=== PATIENT | male | born 1950 | race Caucasian/White ===

== ENCOUNTER 2017-09-25 18:23 | Inpatient (IN) | payer OTHER, MEDICARE, MEDICAID ==
[~2017-09-25] VITALS: Ht 188 cm; Wt 86.2 kg
[~2017-09-25 18:23] MED LIST: DURAGESIC1 EAC4 TD; HYDROCODON-ACE1 EAC8 PO; MECLIZINE HCL25 MG PO; METOPROLOL TART50 MG PO; OMEPRAZOLE20 M1 PO; PROVENTIL HFA6.7 GM INH
--- NOTE | 2017-09-25 22:10 | NUR ---
PT ARRIVES TO CCU FROM ER WITH AND SON, VERY PAINFUL, UP TO BR TO VOID 200ML THEN TO BED. ORIENTED TO ROOM AND CCU, PLAN OF CARE DISCUSSED WITH PT AND HIS FAMILY, QUESTIONS ANSWERED. PT GIVEN 50MCG IV FENTANYL AND OLD FENTANYL PATCH REMOVED AND NEW ONE PLACED. ASSESSMENT DONE. PT HAVING ABDOMINAL PAIN AND CRAMPING SINCE THIS MORNING, ADMITTED FOR ISCHEMIC COLITIS. WILL START IVF, ABX GIVEN IN THE ER.
--- NOTE | 2017-09-26 00:36 | NUR ---
HOLDEN PLACED WITH STERILE TECHNIQUE NO DIFFICULTY, PT PAM PROCEDURE WELL, IMMEDIATELY 185ML OUT OF CLEAR YELLOW URINE, SPECIMEN SENT TO LAB. PT IS MORE COMFORTABLE AT THIS TIME, RATES ABDOMINAL PAIN 6.5/10. WILL TRY TO SLEEP NOW, CALL LIGHT IN HAND.
--- NOTE | 2017-09-26 01:05 | NUR ---
PT CALLS FOR MORE PAIN MEDICINE, 50 MCG IV FENTANYL GIVEN.
--- NOTE | 2017-09-26 02:15 | NUR ---
PT CALLS FOR PAIN MEDICINE, 50MCG IV FENTANYL GIVEN.
--- NOTE | 2017-09-26 03:29 | NUR ---
PT CALLS FOR PAIN MEDICINE FOR 8/10 BACK AND "KIDNEY" PAIN. 50MCG IV FENTANYL GIVEN, WARM BLANKET GIVEN AND PT TO TRY TO GO BACK TO SLEEP.
--- NOTE | 2017-09-26 05:20 | NUR ---
PT CALLS FOR MEDICINE FOR HEADACHE 06/20. 30MG IV TORADOL GIVEN, PT STATES IT HELPED WITH HIS HEADACHE LAST DOSE. BACK TO TRY TO CONTINUE SLEEPING.
--- NOTE | 2017-09-26 06:56 | NUR ---
UP TO BSC, FEELING ABD CRAMPING AND THINKS HE MAY HAVE TO HAVE A BOWEL MOVEMENT.
--- NOTE | 2017-09-26 08:10 | NUR ---
PT AWAKE AND ALERT X4, C/O 7/10 ABD CRAMPING PAIN. PT ALSO C/O SLIGHT NAUSEA. PT DENIES SOB. VITALS AT THIS TIME WNL.
--- NOTE | 2017-09-26 08:15 | NUR ---
PT GIVEN 5O MCG IV FENTANAL FOR PAIN, GIVEN 4 MG IV ZOFRAN FOR NAUSEA. PT ABLE TO HAVE BOWEL MOVEMENT IN BEDSIDE COMMODE CONSISTING MOSTLY OF CURRENT JELLY/BLOODY STOOL. SAMPLE SENT TO LAB.
--- NOTE | 2017-09-26 08:26 | NUR ---
IV SITES INTACT, NO REDNESS OR SWELLING NOTED, FLUIDS INFUSING EASILY. PT DENIES PAIN WITH FLUSH.
--- NOTE | 2017-09-26 09:00 | NUR ---
PT LYING IN BED WHEN ENTERED. ALERT AND ORIENTED. STATED PAIN OF 8 IN ABDOMEN. GIVEN FENTANYL IV ORDERED PRN. PT SAT UP IN BED AND WASHED FACE AND BRUSHED TEETH INDEPENDENTLY. PT HAD ATTEMPTED BM, BEDSIDE COMMODE. ONLY PASSED BLOOD, UNMEASURED AMOUNT. SAMPLE SENT TO LAB. PT STATED NO FEELING OF INCREASED WEAKNESS OR DIZZINESS UPON STANDING FOR BATHROOM.
--- NOTE | 2017-09-26 09:06 | NUR ---
PT C/O 05/20 ABD CRAMPING/PAIN. 50 MCG IV FENTANAL GIVEN FOR PAIN, WARM BLANKETS APPLIED TO ABD. PT ALSO C/O NAGGING HEADACHE, IT IS NOT YET TIME TO GIVE TORADOL FOR THE HEADACHE, ICE PACK APPLIED TO THE BACK OF THE NECK. PT COOPERATIVE AND POLITE. ALERT AND ORIENTED X4.
--- NOTE | 2017-09-26 10:05 | NUR ---
D/C HOLDEN CATHETER. NO RESISTANCE AND PT TOLERATED WELL.
--- NOTE | 2017-09-26 10:19 | NUR ---
PT SITTING UP IN BED, ALERT AND ORIENTED AND VISITING WITH AND SON.
--- NOTE | 2017-09-26 10:30 | NUR ---
FULL REPORT GIVEN TO LANCE MARC. PT IS TO BE TRANSFERED TO MED SURG ROOM 124.
--- NOTE | 2017-09-26 10:35 | NUR ---
HANDOFF REPORT RECEIVED FROM TARI OBRIEN IN CCU. PT TO ARRIVE TO MS FLOOR VIA HOSPITAL BED.
--- NOTE | 2017-09-26 11:00 | NUR ---
PT UP TO BEDSIDE COMMODE.
--- NOTE | 2017-09-26 11:15 | NUR ---
PT BACK TO BED, TRANSFERING TO MED-SURG ON BED. ALL PERSONAL BELONGINGS WENT WITH PT. SPOUSE AND SON ALSO WENT WITH PATIENT.
--- NOTE | 2017-09-26 11:26 | NUR ---
PT GIVEN 50 MCG IV FENTANAL FOR ABD PAIN.
--- NOTE | 2017-09-26 11:30 | NUR ---
PT ARRIVES TO MED SURG VIA HOSPITAL BED. PT COMPLAINING OF 6/10 PAIN IN HEAD, ABDOMINAL CRAMPING. RN CAMILLE ADMINISTERED 50 MCG FENTANYL. PRN TORADOL ADMINISTERED FOR GERONIMO. PT AND SON PRESENT IN ROOM. PT'S VITALS STABLE 96% ON ROOM AIR, HR 60, BP 140/74, RR 18, TEMPERATURE 97.5. SCD'S APPLIED TO PT. IVF INFUSING, MG INFUSING. PT GIVEN WARM BLANKET, OFFERED WASH CLOTH FOR FOREHEAD. CALL LIGHT IN REACH.
--- NOTE | 2017-09-26 11:30 | NUR ---
AIDED PRIMARY NURSE IN TRANSFER FROM CCU TO MED/SURG. PT STATED PAIN FROM HEADACHE AND ABDOMEN AT 6. GAVE FENTANYL AND TORIDOL. APPLIED SCD'S. GAVE PATIENT CALL LIGHT AND WARM BLANKET FOR ABDOMEN. AND SON IN ROOM. PT INSTRUCTED TO CALL NURSE.
--- NOTE | 2017-09-26 11:45 | NUR ---
PT CAME FROM CCU. TOOK VITALS AND PUT NEW BAND ON HIM.
--- NOTE | 2017-09-26 11:45 | NUR ---
PT ASSESSMENT COMPLETE. PT ABDOMEN SOFT, TENDER IN LEFT QUADRANT. PT HAS ACTIVE BOWEL TONES X 4 QUADRANTS. PTS LUNGS SOUND CLEAR THROUGHOUT ALL LOBES. ASSESSMENT OTHERWISE WNL. PT ORIENTED, COOPERATIVE. CONTINUES TO COMPLAIN OF INTENSE "CRAMPING" IN LEFT ABDOMINAL QUADRANT. PT HAS CALL LIGHT, PLAN TO ADMINISTER ADDITIONAL PRN FENTANYL AVAILABLE.
--- NOTE | 2017-09-26 12:01 | NUR ---
ADMINISTERED PRN FENTANYL 50 MCG FOR 05/20 REPORTED ABDOMINAL PAIN IN LEFT ABDOMEN. PT CONTINUES TO COMPLAIN OF GERONIMO WELL. PT RESTING IN BED, IV MG INFUSING AT 100 ML/HR. PT IV SITES WNL. PT HAS CALL LIGHT IN REACH. WILL CONTINUE TO MONITOR.
--- NOTE | 2017-09-26 12:50 | NUR ---
DR. TELLO IN PT ROOM, EXPLAINED PT'S CURRENT ILLNESS, DEMONSTRATED WITH VERBAL AND VISUAL PICTURE. PT'S QUESTIONS ANSWERED. DIET ADVANCED TO CLEAR LIQUIDS FOR TODAY. PT SON AND IN ROOM FOR EXPLANATION. ADMINISTERED 50 MCG FENTANYL FOR LEFT ABDOMINAL PAIN. WILL CONTINUE TO MONITOR. CALL LIGHT IN REACH.
--- NOTE | 2017-09-26 13:20 | NUR ---
PT GIVEN MG. HEAD ELEVATED IN BED, ALERT AND ORIENTED AND VISITING WITH SON AND . PT STATED PAIN WAS RISING AGAIN, AT A 7 IN ABDOMEN. EXPLAINED THAT PT WOULD NOT BE UP FOR FENTANYL DOSE UNTIL 1330. PT DENIED CHANGE OF POSITION, HEAT OR ICE PACK.
--- NOTE | 2017-09-26 13:46 | NUR ---
ADMINISTERED 50 MCG PRN FENTANYL FOR 8/10 PAIN IN LEFT ABDOMEN. PT LYING IN BED. PT FAMILY IN ROOM. PT REQUESTING WATER, SN GRIFFITH BROUGHT PT WATER. CALL LIGHT IN REACH. WILL CONTINUE TO MONITOR.
--- NOTE | 2017-09-26 15:14 | NUR ---
PT RESTING IN BED. DOING WELL. PRINTED HIM OUT SOME INFO ON SCDS AT HOME
--- NOTE | 2017-09-26 15:30 | NUR ---
PT GIVEN CHICKEN BROTH AND ENCOURAGED TO SIP WATER, WELL. SPOKE TO PT ABOUT OPIOID USE AND PT'S PERSONAL GOAL TO DECREASE USE. PT IS CONCERNED ABOUT HYDROCODONE USE AT HOME AND BECOMING MORE DEPENDENT ON HOME MEDS FROM FENTANYL USE AT HOSPITAL. PRIMARY NURSE ABHIJIT OFFERED TO HAVE PHARMACY TALK TO HIM. PT DESCRIBED FEELINGS OF DEPRESSION AND DIFFICULTY LEAVING BED AT TIMES. RECOGNIZES THAT HE MAY NEED ADDITIONAL ASSISTANCE AND STATED THAT HE FEELS HIS OPIOID USE MAY NOT BE HELPING HIM WITH PROBLEMS WITH GI AND DEPRESSION. NOTIFIED SHOWROOM SALES ASSISTANT, CHARLA, OF PT-SN CONVERSATION ABOUT DEPRESSION.
--- NOTE | 2017-09-26 15:39 | NUR ---
PAINTER ORDNANCE SET UP WITH FENTANYL IV W RN ABHIJIT. PT EDUCATED ON PAINTER ORDNANCE USE, AVAILABILITY OF PAIN MEDICATION DELIVERY. PT VERBALIZED UNDERSTANDING. PT STATES THAT PAIN IS 5/10 AT THIS TIME. PT REQUESTED BROTH. SN IN ROOM CHANGING LINENS, PT UP TO RESTROOM AT THIS TIME. WILL CONTINUE TO MONITOR.
--- NOTE | 2017-09-26 15:58 | NUR ---
PT ALERT AND ORIENTED, VISITING WITH SON AND . C/O LEFT ABDOMINAL PAIN AND GIVEN FENTANYL IV ORDERED PRN.
--- NOTE | 2017-09-26 16:18 | NUR ---
PT AMBULATED WELL FROM BED TO BATHROOM. LINENS CHANGED AND PT SETTLED BACK IN BED WITH SCD'S ON. ASKED ABOUT PRESSURE ULCERS, STATED NO PROBLEMS OR ACHES. ENCOURAGED TO SIT IN CHAIR OR CHANGE POSITIONS TO AVOID DEVELOPMENT OF ULCERS, PT POLITELY DECLINED.
--- NOTE | 2017-09-26 17:00 | NUR ---
PT ASSESSMENT COMPLETE. PT'S LUNGS CLEAR THROUGHOUT. PT BOWEL TONES ACTIVE X 4, PT HAS PAIN WITH PALPATION IN LEFT LOWER QUADRANT, AREA OF FIRMNESS NOTED IN LLQ. PT ABDOMEN OTHERWISE SOFT, NON-TENDER. PT HAS SCDS ON, IVF INFUSING. PT STATES PAIN IS 5/10. CALL LIGHT IN REACH.
--- NOTE | 2017-09-26 17:01 | NUR ---
SPOKE WITH PT CONCERNING VOCALIZATION OF DEPRESSION. PT STATED HE KNOWS HE HAS DEPRESSION. HE DOES NOT FEEL HE HAS BEEN ABLE TO TREAT IT. PAST EXPERIENCES WITH ANTIDEPRESSANTS DID NOT GO WELL. PT IS UNSURE IF HE WOULD PURSUE THERAPY WITH A PROFESSIONAL. HE FEELS HE RECOGNIZES HIS TRIGGERS AND CAUSES (OPIOIDS, CHRONIC PAIN, AND HX) AND HE IS WORKING TO ADDRESS THOSE. ENCOURAGED PT TO VOCALIZE ANY CONCERNS WITH PRIMARY NURSE OR ACUPRESSURIST.
--- NOTE | 2017-09-26 17:15 | NUR ---
PT GIVEN NEW BAG OF LR D5. COMFORTABLE IN BED WITH CALL LIGHT AND INTERACTIVE DEVELOPER WITHIN REACH. DESCRIBES ABD PAIN 5/10. STATED HAS NOT USED INTERACTIVE DEVELOPER AT ALL, FEELS NORCO HAS COVERED PAIN WITHIN REASON.
--- NOTE | 2017-09-26 17:32 | NUR ---
PT BM @1500, DOCUMENTED NOW FOR TOTALS. WAS BLOODY, LOOSE. CONSISTED OF MORE BLOOD THAN STOOL. PT EXPRESSED FEELING IMPROVEMENT IN HEALTH AND NOTICING SUBJECTIVE DECLINE IN BLOODY STOOL AMOUNT AND FREQUENCY.
--- NOTE | 2017-09-26 17:57 | NUR ---
ATTACHED PT TO CONTINUOUS PULSE OXIMETRY. PT SPO2 94% ON ROOM AIR. PT HAS NOT USED CALENDERING SUPERVISOR PUMP AT THIS POINT. PT STATES PAIN IS 5/10, WHICH IS TOLERABLE FOR HIM. PT HAS CALL LIGHT IN REACH, IVF INFUSING.
--- NOTE | 2017-09-26 18:39 | NUR ---
SPOKE TO TELEPHARMACY REGARDING FENTANYL PATCH AND CONCRETE ENGINEERING TECHNICIAN FENTANYL. PHARMACIST STATES THAT LONG MAXIMUM DOSE SET, DUE TO PT'S REPORTED TOLERANCE OF NARCOTICS, PT SHOULD BE FINE AT THIS DOSE OF FENTANYL. PT IS ON CONTINUOUS PULSE OXIMETRY. WILL CONTINUE TO MONITOR.
--- NOTE | 2017-09-26 18:45 | NUR ---
PT ARRIVED TO MED SURG FROM UNIT THIS AFTERNOON. PT CONTINUES TO HAVE BLOOD IN STOOL, ONE BM THIS AFTERNOON. PT HAS DENIED NAUSEA THIS AFTERNOON. PAIN HAS BEEN CONTROLLED WITH PRN NORCO, FENTANYL PATCH AND TOOL PUSHER PUMP WITH FENTANYL. PT AMBULATES WITH SBA, GENERAL WEAKNESS. PT ON CLEAR LIQUID DIET AT THIS TIME WITH PLAN FOR SCOPE TOMORROW. SCD'S HAVE BEEN ON AND PT CONTINUES TO RECEIVE IVF.
--- NOTE | 2017-09-26 18:50 | NUR ---
PT AWAKE IN BED. FRESH ICE WATER. PT HAS CALL LIGHT IN REACH.
--- NOTE | 2017-09-26 20:00 | NUR ---
RECEIVED REPORT AT 1900. FOUND PT IN BED WITH AT BEDSIDE. PT STATED THAT HIS PAIN WAS AT A 5/10 WHICH IS TOLERABLE FOR HIM. INSPECTOR PACKAGER IS ON, FENTANYL PATCH IS PRESENT ON RIGHT SHOULDER. PT HAD NO N/V.
--- NOTE | 2017-09-26 22:00 | NUR ---
V/S ARE WDL. PT REPORTED PAIN OF 8/10, 2 TABS OF NORCO WERE GIVEN AND 30MG OF TORALDOL IV WAS GIVEN. PT HAS JENNI AND IS SUPPOSED TO USE A BI-PAP AT HOME (HE DOES NOT). PT IS CURRENTLY ON 2L OF O2 WHILE SLEEPING. FARM CONTRACTOR IS ON WELL TO MONITOR. LOWER BILATERAL LOBES HAD SOME FINE CRACKLES, BILATERAL UPPER LOBES AND RIGHT MIDDLE LOBE ARE CLEAR, NORMAL BOWEL TONES ARE PRESENT IN ALL QUADRANTS. ABD IS FIRMER IN RLQ AND ALSO MORE TENDER TO TOUCH.
--- NOTE | 2017-09-26 22:08 | NUR ---
ROUNDED CHARGE. PATIENT AND FAMILY HAVE NO COMMENTS, QUESTIONS, AND CONCERNS.
--- NOTE | 2017-09-27 | NUR ---
PT AT THIS TIME IS SLEEPING.
--- NOTE | 2017-09-27 04:19 | NUR ---
AT 0350 PT STARTED TO COMPLAIN ABOUT INCREASING ABD PAIN AND PRESSURE. ABD IS VISIBLY MORE DISTENDED AND FIRMER TO TOUCH. SBP WAS 159. BOWEL TONES ARE STILL ACTIVE. PT LOOKS AND FEELS BAD. MD TYLER WAS CALLED. NO NEW ORDERS WERE GIVEN AT THIS TIME. I WILL CONTINUE TO MONITOR.
--- NOTE | 2017-09-27 06:49 | NUR ---
AT START OF SHIFT ABD WAS MILDLY DISTENDED AND SOFT TO TOUCH. BY EARLY THIS MORNING HIS ABD WAS MODERATELY DISTENDED AND FIRM TO TOUCH. PT HAD A BLODDY BM X1. PT USE ALL TOGETHER 90MCG OF HIS E LEARNING COORDINATOR. PT RECEIVED PRN NORCO 2TAB AND TORADOL EACH X2 THIS SHIFT. PAIN IS NOT WELL CONTROLLED OVERALL. PT IS ON 2L OF O2. PT OVERALL DOES NOT FEEL WELL. MD TYLER IS AWARE. V/S AT THIS TIME ARE WDL
--- NOTE | 2017-09-27 07:15 | NUR ---
BEDSIDE REPORT RECEIVED FROM TARI BRADFORD. PT RATES PAIN OF 5/10 AT THIS TIME, STATES HE HAS A GERONIMO, DISCUSSED PRN TORADOL AVAILABILITY, GAVE PT COOL RAG FOR FOREHEAD. PT'S ABDOMEN IS MORE DISTENDED THROUGHOUT TODAY. ABDOMEN MORE FIRM TODAY. PT STATES HE "DOESN'T FEEL WELL OVERALL". WILL CONTINUE TO MONITOR PT. PT HAS CALL LIGHT IN REACH. IVF IS INFUSING, SCD'S ON. IV SITES WNL.
--- NOTE | 2017-09-27 07:58 | NUR ---
PT STATED FEELING MORE BLOATED IN ABDOMEN AND IS NOTICABLY SO COMPARED TO YESTERDAY. STATED DID NOT SLEEP WELL. NECK HAS BEEN HURTING, ASSOCIATED WITH CHRONIC PAIN. PT DENIED INTERVENTION AND ALREADY HAS COOL WASH CLOTHS ON FOREHEAD AND NECK. PT STATED NO PAIN IN ABDOMEN, BUT IS UNCOMFORTABLE AND SHORT OF BREATH.
--- NOTE | 2017-09-27 08:45 | NUR ---
PT ASSESSMENT COMPLETE. PT BOWEL TONES HYPOACTIVE X 4 QUADRANTS. PT STATES PAIN W DEEP PALPATION IN LLQ. CRACKLES NOTED IN RLQ, DIMINISHED THROUGHOUT. ENCOUARGED PT TO USE INCENTIVE SPIROMETER. PT DEMONSTRATED USE X 2 WITH 1750 ML BEST EFFORT. PT DENIES NAUSEA AT THIS TIME, RATES PAIN AT 5/10 IN ABDOMEN. IVF INFUSING, CHARGE NURSE IN AT THIS TIME TO NOTIFY THAT SURGERY IS ON WAY, DR. TELLO ON FLOOR FOR CONSENT. PT HAS CALL LIGHT.
--- NOTE | 2017-09-27 09:05 | NUR ---
DR. TYLER IN TO SEE PT. PT NOW OFF FLOOR WITH BILLING MACHINE OPERATOR, LR INFUSING. SCDS ON. PT ON ROOM AIR AT THIS TIME.
--- NOTE | 2017-09-27 10:30 | NUR ---
PT ARRIVES BACK TO MED SURG WITH SURGERY RN MAR. PT STATING PAIN IS 6/10 IN LLQ AT THIS TIME. PT HOOKED UP TO BARRELHEAD INSPECTOR PUMP, ARRIVES ON 2L NC. VITAL SIGNS STABLE AT THIS TIME. CRACKLES NOTED IN LLL ON AUSCULTATION. PT ENCOURAGED TO DEEP BREATHE, USE INCENTIVE SPIROMETER. PT BOWEL TONES ACTIVE X 4, ABDOMEN DISTENDED, TENDER THROUGHOUT WITH DEEP PALPATION. PT HOOKED UP TO SCDS AND IVF. CALL LIGHT IN REACH. PT IS DENYING NAUSEA AT THIS TIME.
--- NOTE | 2017-09-27 10:45 | NUR ---
PRIMARY NURSE ASSESSED PT AFTER RETURNING TO ROOM FROM COLONOSCOPY. ADMINISTERED ZOFRAN FOR NAUSEA AND REPOSITIONED PT FROM SUPINE TO LEFT SIDE FOR ABDOMINAL PAIN. PT STILL ON FENTANYL EMPLOYMENT OFFICE CLERK. SON, DAUGHTER, AND MOTHER AT BEDSIDE.
--- NOTE | 2017-09-27 11:16 | NUR ---
ADMINISTERED IV ZOFRAN FOR PT REPORT OF NAUSEA. PT COMPLAINING OF 8/10 PAIN AT THIS TIME, USING WASTE RECYCLER PUMP. IVF INFUSING AT THIS TIME. PT HAS SCD'S ON. REPOSITIONED PT TO SIDE FOR COMFORT. PT AT BEDSIDE. OXYGEN ON 2L NC, SPO2 96% AT THIS TIME, ENCOURAGED PT TO DEEP BREATHE, USE INCENTIVE SPIROMETER ABLE TO.
--- NOTE | 2017-09-27 11:30 | NUR ---
PTS SECOND SET OF POST OP VITALS COMPLETE. BP 152/81 (100), HR 66, TEMPERATURE 97.9, 97% ON 2L NC. PT STATES PAIN IS 3-4/10 AT THIS TIME. PT AWAKE, ORIENTED, AT BEDSIDE, SON AND DAUGHTER ALSO IN ROOM. PT HAS CALL LIGHT IN REACH, IVF INFUSING, SCDS ON. WILL CONTINUE TO MONITOR.
--- NOTE | 2017-09-27 12:27 | NUR ---
PT AMBULATED TO BATHROOM, SBA. RESITUATED IN BED WITH SCD'S, OXYGEN, AND NEW BAG OF D5LR. PT STATED FEELING LESS SEDATED BUT FALLING ASLEEP.
--- NOTE | 2017-09-27 12:35 | NUR ---
TITRATED PT DOWN TO 1.5 L O2 NC. ALERT SITTING IN BED WITH LUNCH AT SIDE AND AND DAUGHTER IN ROOM. PT STATES STILL FEELING DROWSY. THIRD SET OF VITALS POST-SURGERY. VITALS STABLE.
--- NOTE | 2017-09-27 12:50 | NUR ---
SLOWED PT IV POTASSIUM DOWN TO 75Ml/HR IN RESPONSE TO C/O ACHING IV SITE. NO SIGNS OF INFLAMMATION OR REDNESS. PT TURNED TO RIGHT SIDE TO SLEEP. GAVE REPORT TO TARI VAZQUEZ.
--- NOTE | 2017-09-27 13:13 | NUR ---
PT STATES PAIN AT RIGHT AC IV SITE. POTASSIUM SLOWED DOWN TO 50ML/HR AND GIVEN WARM BLANKET FOR SITE. PT C/O FEELING SOB WHEN FALLING ASLEEP. O2 SATS REMAIN ABOVE 95 WHILE SN IN ROOM WITH PT SLEEPING. NURSE LANCE NOTIFIED OF ALL.
--- NOTE | 2017-09-27 14:58 | NUR ---
ADMINISTERED PRN NORCO FOR PT REPORTED PAIN OF 6/10 "CRAMPING". PT SITTING UP IN BED. IV FLAGYL AND FLUIDS INFUSING. PT IV SITES WNL. PT DENIES NAUSEA. NO ADDITIONAL REQUESTS AT THIS TIME. PT STILL COMPLAINING OF GERONIMO WELL, IV TORADOL WAS ADMINISTERED. PT HAS CALL LIGHT IN REACH. SPO2 94% ON ROOM AIR. WILL CONTINUE TO MONITOR.
--- NOTE | 2017-09-27 16:39 | CONS ---
[facility] [address], [place] [address] Signed DATE OF CONSULTATION: 09/26/2017 PROBLEM: Probable ischemic colitis, left colon. HISTORY OF PRESENT ILLNESS: This 67-year-old white man was admitted by Dr. Troncoso yesterday, September 25 at approximately 10:30 p.m. with complaints of left-sided abdominal pain. The patient has a long-standing history of chronic pain syndrome related to several back operations of his lumbar spine. He is on a fentanyl patch chronically for that. Yesterday, the day of admission, he began having pain in the lower abdomen, which was rather sudden in onset and noted on the left side including the left lower abdomen. He had a fair amount of cramping and need for bowel movement and did have some bloody diarrhea. He had at least three episodes of blood per rectum. He presented to the emergency room, where he was evaluated by Dr. Rosas, which included a CT scan showing probable left-sided colitis, consideration was made this may represent ischemic colitis. Upon close review and discussion with his and son who attend to him, he has had episodes of abdominal pain including left-sided pain in the past. This has actually been going on for quite some time, may be months or even more than a year. He has no family history of ulcerative colitis or Crohn disease or colon cancer that he is aware of. SOCIAL HISTORY: He is retired. He previously lived in [place], [place]. He does not smoke or use alcohol particularly. He is . PAST MEDICAL HISTORY: Does include chronic back pain related to multiple operations in the past, currently requiring fentanyl patch for control of pain. Also, he has reflux disease and hypertension. Notably, he is said to have delirium from Dilaudid and morphine. He has been treated with fentanyl intravenously administered episodically since his admission. He is not on a INSPECTOR AIR CARRIER (yet). MEDICATIONS: At admission include, 1. Fentanyl patch 25 mcg/hour. 2. Albuterol sulfate. 3. Proventil. 4. Omeprazole. 5. Metoprolol 50 mg daily. 6. [place] 10/325 one p.o. b.i.d. 7. Meclizine 25 mg at bedtime p.r.n. nausea. Electronically Signed By: LYNDON TELLO MD 09/27/17 1639 PATIENT NAME: ARLEN GILL III CONSULTATION DATE OF : 46 PHYSICIAN: LYNDON TELLO MD REPORT #: [id number] REPORT IS CONFIDENTIAL AND NOT TO BE RELEASED WITHOUT AUTHORIZATION [facility] [address], [place] [address] Signed REVIEW OF SYSTEMS: He denies any chest pain or shortness of breath. He has had no further blood per rectum since admission. He does feel somewhat better since admission. He has no dysphagia or hematuria or hematemesis. Denies pneumaturia. PHYSICAL EXAMINATION: GENERAL: Pleasant, bermudez-haired, white man, who is alert and oriented with no sign of systemic toxicity or delirium. NECK: Trachea is midline. He has no carotid bruit. His mucous membranes are still somewhat dry. CHEST: Clear. HEART: Regular. I detect no murmur. ABDOMEN: Nondistended. Abdominal palpation shows dominant discomfort in the left lower and left mid abdomen. No right-sided pain. There is no ascites. EXTREMITIES: No clubbing, cyanosis, or edema. LABORATORY STUDIES: On admission from 6:45 p.m. show normal electrolytes, bicarb is 23, creatinine is 1.11. Liver enzymes are normal. ProTime is 12.4, INR 0.9. White count is elevated at 18.3, hematocrit 46.3, platelets 172,000, band forms 5%. I see no evidence of urinalysis. CT scan shows a long segment of colonic wall thickening and pericolonic stranding and edema of the left colon. Findings were considered "consistent with colitis." Consideration for small vessel ischemic vasculitis, infectious or inflammatory disease also noted. He is said to have a large arc of [place] originating from the SMA. I will need to review the CT more closely with the radiologist to affirm that description. ASSESSMENT: He has left-sided pain and CT scan findings consistent with colitis. Consideration has been made this is ischemic colitis and that certainly is possible. Infectious causes or late onset inflammatory bowel disease is a consideration as well. I will review the films more fully with Dr. Damico as regards possible anatomic variants of diminutive collateral flow related to the left colon. Consideration is made for colonoscopy to more clearly characterize the source of colitis. If inflammatory bowel disease is noted, then of course an anti-inflammatory approach will be necessary. If it is suspected as an ischemic colitis problem, then bowel rest, antibiotics and intravenous fluid resuscitation support would be the mainstay of therapy. I discussed all this in detail with the patient and his and his son with the use of illustrations on the dry [employer] board and so on. I would not recommend consideration for colonoscopy at this time given his still acute symptoms. He may be ready by tomorrow for this intervention, however. We will see clinically how he is doing in that regard. Electronically Signed By: LYNDON TELLO MD 09/27/17 4163 PATIENT NAME: ENGLISH CAPUTO,ARLEN ONARGA CONSULTATION DATE OF : 46 PHYSICIAN: LYNDON TELLO MD REPORT #: [id number] REPORT IS CONFIDENTIAL AND NOT TO BE RELEASED WITHOUT AUTHORIZATION [address] [place] [address] Signed Agree with current approach to therapy to include parenteral pain medication. He may benefit from a fentanyl INSPECTOR AIR CARRIER device as frequent dosing of his fentanyl has been required already. MD RAQUEL Juan/DIPTI /[id number] cc: [facility] Lance Troncoso MD Electronically Signed By: LYNDON TELLO MD 09/27/17 1639 PATIENT NAME: ARLEN GILL III CONSULTATION DATE OF : 46 PHYSICIAN: LYNDON TELLO MD REPORT #: [id number] REPORT IS CONFIDENTIAL AND NOT TO BE RELEASED WITHOUT AUTHORIZATION
--- NOTE | 2017-09-27 16:57 | NUR ---
DR. TELLO IN TO SEE PT, UPDATE ON PLAN OF CARE. PT AND PT'S 'S QUESTIONS ANSWERED. PT STATES PAIN IS 6/10 IN LLQ. PT PUSHED MOTION PICTURE ACTOR PUMP. PT AT BEDSIDE. CALL LIGHT IN REACH. NO REQUESTS AT THIS TIME. PLAN TO WALK THIS EVENING.
--- NOTE | 2017-09-27 21:46 | NUR ---
ROUNDED CHARGE. PATIENTS IS IN THE ROOM. PATIENT AND DENY ANY COMMENTS, QUESTIONS, OR CONCERNS.
--- NOTE | 2017-09-27 22:00 | NUR ---
V/S ARE WDL. PT SO FAR HAS RECEIVED 2TABS PRN NORCO AND 30MG OF IV TORADOL FOR PAIN 05/20. ALL LOBES ARE CLEAR, ABD BOWEL TONES ARE PRESENT, PT DENIED PASSING GAS, ABD IS FIRM AND TENDER TO TOUCH. PT AMBUALTED AROUND SHIFT CHANGE. PT IS TOLERATING PO INTAKE WELL. HOWEVER PT HAS POOR APPETITE. NO NEW CONCERNS AT THIS TIME.
--- NOTE | 2017-09-27 23:06 | NUR ---
PT RECEIVED 4MG OF ZOFRAN FOR NAUSEA.
--- NOTE | 2017-09-28 00:02 | NUR ---
PT IS STILL NAUASEADED BUT NO BAD. WILL CONTINUE TO MONITOR.
--- NOTE | 2017-09-28 02:00 | NUR ---
ASSISTED PT FROM BATHROOM. PT IS HAVING INCREASING ABD PAIN, BOWEL TONES ARE STILL PRESENT. PT DENIES PASSING GAS. ABD IS FIRM AND TENDER. PT IS USING FUELER AND DID NOT WANT ANY PO PRN PAIN MEDICATION. WILL CONTINUE TO MONITOR. NAUSEA HAS ALSO NOT FULLY SUBSIDED SO FAR.
--- NOTE | 2017-09-28 03:09 | NUR ---
AT AROUND 0245 PT HAD 10/10 PAIN IN ABD RLQ. PT REFUSED PO NORCO DUE TO NAUSEA AND ALSO REFUSED IV TORADOL (NOT SURE WHY). SBP WAS 195, ABD IS MODERATELY DISTENDED AND FIRM TO TOUCH. PT HOWEVER HAS NORMAL BOWEL TONES PRESENT. PT USED INCIDENT HANDLER X2 WITHIN ABOUT 45MIN WHICH EQUALED 40MCG OF IV FENTANYL. MD TYLER ORDERED 12.5MG OF PHENERGAN IV PRN Q6HRS. PHENERGAN AND IV TORADOL WERE GIVEN. WILL MONITOR [place]. V/S TO BE TAKEN AGAIN.
--- NOTE | 2017-09-28 03:37 | NUR ---
PAIN HAS NOT LESSEND SO FAR. PT DENIES NAUSEA. BP WAS 168/88, MAP 108, HR 70. PT IS BELCHING AT THIS TIME. PT AT THIS TIME IS DROWSY. WILL CONTINUE TO MONITOR.
--- NOTE | 2017-09-28 05:28 | NUR ---
AT START OF SHIFT PAIN WAS ACCEPTABLY CONTROLLED WITH PRN PAIN MEDS AVAIALBLE. ALL LOBES WERE CLEAR, ABD SOUNDS WERE PRESENT, V/S WERE WDL. BY AROUND 0230, PT HAD 10/10 PAIN, PT WAS NAUSEATED AND REFUSED PO PAIN MEDS. SBP WAS 195 AND MD TYLER WAS CALLED. I RECEIVED AN ORDER FOR PHENERGAN 12.5MG. IT WAS GIVEN. NAUSEA HAS SINCE SUBSIDED AND BP WAS GONE DOWN <180, HOWEVER HIS PAIN LEVEL HAS NOT CHANGED. PT HAS BEEN SLEEPING ON AND OFF DUE TO DROWSINESS. HIS ABD IS STILL DISTENDED AND FIRM TO TOUCH.PT IS STILL NOT PASSING ANY GAS. WILL CONTINUE TO MONITOR.
--- NOTE | 2017-09-28 06:04 | NUR ---
SBP WAS 182, MD TYLER WAS CALLED. NO NEW ORDERS WERE GIVEN.
--- NOTE | 2017-09-28 07:30 | NUR ---
PT BEING TAKEN TO X-RAY BY WHEELCHAIR NOW.
--- NOTE | 2017-09-28 07:37 | NUR ---
PATIENT BEING WHEELED TO IMAGING. WHITEBOARD UPDATED, ROOM TIDIED.
--- NOTE | 2017-09-28 08:32 | NUR ---
PT LYING ON LEFT SIDE RESTING QUIETLY. VSS. BP 137/71. 95% ON ROOM AIR. WATER SERVICE SUPERVISOR BUTTON ATTACHED TO PILLOW IN REACH OF PATIENT. DIRECTED PT TO USE BUTTON IF NEEDED FOR PAIN CONTROL. PT REPORTS 6/10 PAIN IN ABDOMEN. ABDOMEN DISTENDED AND TENDER. BOWEL TONES ACTIVE. NO FLATUS REPORTED YET. NEW FENTANYL PATCH APPLIED TO RIGHT SHOULDER.
--- NOTE | 2017-09-28 11:23 | NUR ---
NURSE IN ROOM, SWITCHING OUT IV.
--- NOTE | 2017-09-28 12:22 | NUR ---
PATIENT DOING WELL. DOES NOT NEED ANYTHING AT THIS TIME.
--- NOTE | 2017-09-28 13:54 | NUR ---
pt sleeping on left side. KPhos infusing into LAC. new iv placed by RN this morning to use for PROFESSIONAL ARCHITECT/IVF. norco 2 tabs given for abd pain. encouraged PO intake before taking tabs. was at bedside to assist with feeding. pt very somnolent and lethargic. increased pain with ambulation. will continue to have pt ambulate several times today.
--- NOTE | 2017-09-28 14:27 | NUR ---
PT URINATED 200ML DARK YELLOW URINE AND THEN AMBULATED 1 LAP OF MED SURG UNIT. APPEARS TO BE MORE COMFORTABLE AND PAIN BETTER CONTROLLED. PT STATES HE FEELS BETTER, BUT IS SLEEPY. PT BACK TO BED NOW. CALL LIGHT IN REACH.
--- NOTE | 2017-09-28 16:36 | NUR ---
PATIENT DOING WELL. GOT UP TO BATHROOM AND BACK TO BED. DOES NOT NEED ANYTHING ELSE AT THIS TIME.
--- NOTE | 2017-09-28 17:10 | NUR ---
PT SLEPT MOST OF DAY. ROOM AIR THROUGHOUT DAY. HELD LABETOLOL FOR SBP <130. AMBULATED HALLS X2 TODAY. COLONOSCOPY YESTERDAY. FENTANYL PATCH RIGHT SHOULDER AND FENTANYL BOILER OR ENGINE OPERATOR. D5LR@125. FLAGYL. KPHOS RIDER TODAY FOR PHOS 1.9. IMAGING THIS MORNING SHOWS NEGATIVE PERFORATION, COLITIS ALONG DESCENDING COLON, POSSIBLE MILD ILEUS OVER OBSTRUCTION. NEW IV IN LFA. NORCO 2 TABS GIVEN AT 1145-- IMPROVED PAIN TO COMFORTABLE LEVEL. ZOFRAN GIVEN AT 1550. POOR APPETITE. ENCOURAGE PO INTAKE. NO FLATUS. POSITIVE BOWEL TONES. IN TO VISIT THIS MORNING.
--- NOTE | 2017-09-28 18:49 | NUR ---
PT UP TO BATHROOM AND THEN AMBULATED A SHORT LAP AROUND EAST END OF MED SURG UNIT. BACK TO BED. SCDs IN PLACE AND ON. IV PUMPS PLUGGED IN. PAINT LINE PRODUCTION SUPERVISOR BUTTON WITHIN REACH. AT BEDSIDE.
--- NOTE | 2017-09-28 19:30 | NUR ---
RECEIVED REPORT FROM DAY SHIFT RN. PATIENT IS RESTING IN BED EATING JELLO. PATIENT DENIES ANY PAIN OR NEEDS AT THIS TIME. AT BEDISDE. CALL LIGHT IN REACH.
--- NOTE | 2017-09-28 21:00 | NUR ---
PATIENTS BP WAS ELEVATED ABOVE NORMAL. PLACED CALL TO HOSPITALIST. NO NEW ORDERS GIVEN. WILL GO AHEAD AND ADMINISTER 2100 BP MEDS.
--- NOTE | 2017-09-28 21:15 | NUR ---
PATIENTS ASSESMENT COMPLETED. PATIENTS EVENING MEDICATIONS GIVEN PER ORDER. PATIENT RATES PAIN AT AN 8/10. PRN PAIN MEDICATION GIVEN PER ORDER. PATIENTS ABDOMEN CONTINUES TO BE DISTENDED, BUT IS IT NON TENDER AND SOFT. PATIENT ASSISTED TO THE RESTROOM. PATIENT IS A SBA AND IS STEADY ON HIS FEET. PATIENT HAD X1 SMALL LOOSE BM. PATIENT DID PASS GAS WHILE IN THE BATHROOM. PATIENT HAS SCDS AND PULSE OX IN PLACE. PATIENTS REMAINS AT THE BEDISDE. ALL QUESTIONS ANSWERED. CALL LIGHT IN REACH. NO FURTHER REQUESTS.
--- NOTE | 2017-09-28 21:57 | NUR ---
PATIENTS VITALS REEVALUATED AND RECORDED. PATIENTS HAS LEFT FOR THE EVENING. PATIENTS PAIN IS NOW A 5/10. PATIENT STATED "THE PAIN PILL HELPED, I FEEL LIKE I CAN REST NOW" PATIENT DENIES ANY FURTHER NEEDS. CALL LIGHT IN REACH.
--- NOTE | 2017-09-28 23:40 | NUR ---
PATIENT CALLED AND REQUESTED PAIN MEDICATION FOR 7/10 ABD PAIN. PATIENT EDUCATED ON THE USE OF THE NOTCHING MACHINE OPERATOR. PATEINT STATED "THE PILLS WORK BETTER" PATIENT DOES NOT HAVE PO PAIN MEDICATION DUE AT THIS TIME. WILL BRING IN WHEN AVAILABLE.
--- NOTE | 2017-09-29 00:38 | NUR ---
PATIENT GIVEN PRN PAIN MEDICATION FOR 8/10 ABD PAIN. PATIENTS ABD REMAINS DISTENDED. ABDOMEN REMAINS NON TENDER AND SOFT. PATIENT DENIES ANY NAUSEA. PATIENT DENIES ANY FURTHER NEEDS. CALL LIGHT IN REACH.
--- NOTE | 2017-09-29 01:44 | NUR ---
PATIENT GIVEN PRN NAUSEA MEDICATTION. PATIENT ASSISTED TO THE RESTROOM. PATIENT IS A SBA AND IS STEADY ON HIS FEET. PATIENT RATES PAIN AT A 6/10. PATIENT IS BACK IN BED WITH SCDS AND PULSE OX IN PLACE. PATIENT DENIES ANY FURTHER NEEDS AT THIS TIME. CALL LIGHT IN REACH.
--- NOTE | 2017-09-29 03:51 | NUR ---
PATIENT IS RESTING IN BED WITH EYES CLOSED. PULSE OX READINGS ARE WNL. CALL LIGHT IN REACH.
--- NOTE | 2017-09-29 04:24 | NUR ---
PATIENT RESTED ON AND OFF THROUGHOUT THE SHIFT. PATIENT IS ON CLEARS. PATIENT GIVEN PRN NAUSEA MEDICATION X1. PATIENT GIVEN PRN PAIN MEDICATION X2. PATIENT HAS BUSINESS REPORTER IN PLACE. PATIENT HAS PULSE OX. PATIENT IS A SBA AND IS STEADY ON HIS FEET. PATIENT HAS SCDS IN PLACE. PATIENT HAS ACTIVE BOWELS TONES. PATIENTS ABD REMAINS DISTENDED, NON TENDER, AND SOFT. PATIENT IS AAOX3 AND USES CALL LIGHT APPROPRIATELY.
--- NOTE | 2017-09-29 05:47 | NUR ---
PATIENT IS ASSISTED TO AMBULATE IN THE HALLWAY. PATIENT IS A SBA AND IS STEADY ON HIS FEET. PATIENT WAS ABLE TO COMPLETE X1 LAP. PATIENT ASSISTED TO THE RESTROOM. PATIENT HAD X1 SMALL, LOOSE BM. PATIENTS BP WAS ELEVATED. PLACED CALL TO DR. TYLER. NO NEW ORDERS AT THIS TIME. PATIENT RATES PAIN AT A 5/10 AND DENIES THE NEED FOR PO PAIN MEDICATION. PATIENTS BOWELS REMAIN ACTIVE. PATIENT STATED "I FEEL LESS BLOATED, JUST GASSY" PATIENT CONTINUES TO PASS GAS, AND BELCH. PATIENTS ABDOMEN REMAINS SOFT, NON TENDER, AND DISTENDED. PATIENT DENIES ANY NAUSEA. PATIENT IS RESTING IN BED WATCHING TV. NO FURTHER REQUESTS AT THIS TIME. PIETRO LIGHT IN REACH.
--- NOTE | 2017-09-29 07:43 | NUR ---
PATIENT IN BED ASLEEP. WHITEBOARD UPDATED, ROOM TIDIED. PATIENT CALLED TO GO TO BATHROOM, TAKEN AND BACK TO BED.
--- NOTE | 2017-09-29 09:21 | NUR ---
PT SLEEPING ON LEFT SIDE IN BED. BOWEL TONES ACTIVE. NO FLATUS. PAIN COMFORTABLE LEVEL NOW. ENCOURAGED PT TO ASK FOR PRN PAIN MEDICATION WHEN NEEDED. NEW BACK IVF HUNG THIS MORNING. TOOK SCHEDULED MEDS ORDERED.
--- NOTE | 2017-09-29 10:14 | NUR ---
PATIENT HAD A NAUSEA EPISODE, NURSE NOTIFIED AND ADMINISTERED MEDICINE. PATIENT JUST DRY HEAVED, DID NOT HAVE ANY EMESIS OUT.
--- NOTE | 2017-09-29 12:58 | NUR ---
nurse in room
--- NOTE | 2017-09-29 13:17 | NUR ---
PT RESTING QUIETLY THROUGHOUT DAY. C/O HEADACHE. NORCO 2 TABS GIVEN.
--- NOTE | 2017-09-29 14:18 | NUR ---
ADMINISTERED NORVASC PER MD ORDER FOR BP. IVF DECREASED TO 75ML/HR. AMBULATED PT IN HALLS.
--- NOTE | 2017-09-29 15:46 | NUR ---
PATIENT DOING WELL. DOES NOT NEED ANYTHING AT THIS TIME.
--- NOTE | 2017-09-29 17:12 | NUR ---
PT SLEEPY FIRST HALF OF DAY. C/O NAUSEA AND HEADACHE. ZOFRAN X1, PHENERGAN X1, NORCO 2 TABS GIVEN X1. PT BETTER THIS AFTERNOON-- MORE ALERT AND ACTIVE. AMBULATED X2 1 FULL LAP OF MED SURG UNIT. D5LR INFUSION DECREASED TO 75ML/HR. FENTANYL MORTGAGE PROFESSIONAL DISCONTINUED. FENTANYL PATCH STILL ON RIGHT SCAPULA. CLEAR LIQUID DIET. ENCOURAGE PO INTAKE. ENSURES OK. CONTINUOUS PULSE OX DISCONTINUED WITH MORTGAGE PROFESSIONAL. NORVASC STARTED IN PLACE OF LABELOLOL. IN TO VISIT SEVERAL TIMES TODAY.
--- NOTE | 2017-09-29 19:20 | NUR ---
RECIEVED REPORT FROM SAHIL MARC. PT RESTING IN BED. AT BEDSIDE. DENIES NEEDS. CALL MINOR IN REACH.
--- NOTE | 2017-09-29 20:38 | NUR ---
PT RESTING IN BED WITH AT BEDSIDE. REQUESTING FOR NAUSEA MEDICATION. PT STATES HE DRANK AN ENSURE AND A CUP OF GRAPE JUICE THAT IS NOT SETTLING WELL. ZOFRAN ADMINISTERED. ENCOURAGED PT TO CALL IF NAUSEA IS NOT RELIEVED IN 20 MINUTES. PT DENIES FURTHER NEEDS. CALL MINOR IN REACH.
--- NOTE | 2017-09-29 21:23 | NUR ---
PT SLEEPING. AT BEDSIDE. DENIES NEEDS. CALL MINOR IN REACH.
--- NOTE | 2017-09-29 22:07 | NUR ---
PT RESTING IN BED. STATES HE HURTS "ALL OVER," BUT MOSTLY HIS LOWER ABD. STATES HE HAS CRAMPS AND RATES HIS PAIN 7/10. ADMINISTERED 2 TAB NORCO. NO C/O N/V. PT STATES HE FEELS MILDLY DISTENDED, ABD IS SOFT. LUNGS CLEAR/DIM, HR REG, NO EDEMA. ENCOURAGED USE OF INCENTIVE SPIROMETER, PT ABLE TO REACH 1750ML. PT REFUSING TO WEAR SCDS AT THIS TIME. STATES IT IS THE FIRST TIME HE HAS HAD THEM OFF. PT DENIES FURTHER NEEDS. CALL MINOR IN REACH.
--- NOTE | 2017-09-29 22:34 | NUR ---
PT UP TO BATHROOM WITH COAL CAGER.
--- NOTE | 2017-09-29 23:50 | NUR ---
PT C/O CRAMPING PAIN IN HIS LOWER ABD. PT STATES HE IS ALSO FEELING NAUSEOUS. ADMINISTERED PHENERGAN. ASSISTED PT TO BATHROOM.
--- NOTE | 2017-09-30 00:10 | NUR ---
MASONRY INSTRUCTOR REPORTS PT STATED HE HAD A GERONIMO WHEN SHE ASSISTED HIM BACK INTO BED FROM THE BATHROOM. WENT IN TO SEE PT, HE STATES HE DOES NOT HAVE A GERONIMO BUT HIS CRAMPING IS STILL SEVERE. I TOLD HIM I JUST GAVE HIM PHENERGAN AND IT STILL NEEDS TIME TO WORK. I TOLD HIM I WOULD BE BACK IN 15 MINUTES TO REASSESS. PT AGREES. CALL MILY IN REACH.
--- NOTE | 2017-09-30 00:30 | NUR ---
PT SLEEPING. IVF INFUSING W/O DIFFICULTY. CALL MINOR IN REACH.
--- NOTE | 2017-09-30 01:11 | NUR ---
PT SLEEPING. IVF INFUSING W/O DIFFICULTY. CALL MINOR IN REACH.
--- NOTE | 2017-09-30 02:41 | NUR ---
PT UP TO BATHROOM WITH SBA. VOIDED. BACK TO BED. PT C/O CRAMPS. APPLIED HEAT PACK. TOLD HIM I WOULD CHECK ON HIM IN 1/2 HOUR, IF CRAMPING IS NOT RELIEVED WILL GIVE PAIN MEDICATION. CALL LIGHT IN REACH.
--- NOTE | 2017-09-30 03:24 | NUR ---
PT SLEEPING. CALL MINOR IN REACH.
--- NOTE | 2017-09-30 04:29 | NUR ---
PT SLEEPING. CALL MINOR IN REACH.
--- NOTE | 2017-09-30 06:08 | NUR ---
PT UP TO BATHROOM TO VOID. BACK TO BED. SCDS IN PLACE. PT C/O GERONIMO THAT IS 05/20 AND ABDOMINAL CRAMPING IN LOWER ABDOMEN 05/20. I HAD HIM EAT A COUPLE BITES OF PUDDING BEFORE I ADMINISTERED 2 TAB NORCO. PT'S BS HYPOACTIVE, LUNGS CLEAR-DIM IN LEFT BASE. PT DEMONSTRATED PROPER USE OF IS- HE WAS ABLE TO REACH 2000ML. REMOVED SALINE LOCK IN R AC. PT DENIES FURTHER NEEDS. CALL MINOR IN REACH.
--- NOTE | 2017-09-30 09:54 | NUR ---
PATIENT UP TO SHOWER AND ORAL CARE. LINENS CHANGED.
--- NOTE | 2017-09-30 10:28 | NUR ---
PT UP TO BATHROOM THIS MORNING. VOIDING WELL. DIET ADVANCED TO FULL LIQUID LOW FIBER DIET. AMBULATED 1 LAP MED SURG UNIT THIS MORNING. DR TELLO IN TO SEE PATIENT. EXCEDRIN ADDED PER DR TELLO WITH OK FROM HOSPITALIST FOR HEADACHE. PT SET UP FOR SHOWER BY RN AND AID.
--- NOTE | 2017-09-30 12:38 | NUR ---
NEW IV PLACED. LAC LEAKING. AND SON VISITING NOW. GOWN CHANGED.
--- NOTE | 2017-09-30 13:10 | NUR ---
DR. TYLER IN TO SEE PATIENT. PATIENT MAY BE ELIGIBLE TO DISCHARGE HOME TOMORROW ON 10/01/17. PATIENT HAD SOLID FOOD FOR LUNCH TODAY, IS TOLERATING WELL WITH NO PAIN/NAUSEA. CARE CONFERENCE DONE WELL.
--- NOTE | 2017-09-30 13:18 | NUR ---
CARE CONFERENCE PRESENT: PATIENT, STAFF: DR TYLER, MYSELF, SUMMER SANDRA Galvez SMOKING PIPE MAKER, MEDICAL STUDENTS DISCUSSED THAT PATIENT IS READY FOR DISCHARGE POSSIBLY TOMORROW. QUESTIONS ANSWERED REGARDING MEDS/DIET/FOLLOW UP PATIENT AND STATE THEY FEEL HE CAN RETURN HOME SAFELY.
--- NOTE | 2017-09-30 14:04 | NUR ---
PATIENT RESTING IN BED WITH IN ROOM. CALL BUTTON IN REACH. FRESH ICE WATER GIVEN. NO OTHER NEEDS AT THIS TIME.
--- NOTE | 2017-09-30 14:08 | NUR ---
PT ALERT, ORIENTED AND SUPPORTED BY HIS . HE SAID HE WAS FEELING MUCH BETTER, AND THANKED ME FOR STOPPING BY. EXTENDED A BLESSING AND WILL FOLLOW NEEDED
--- NOTE | 2017-09-30 16:06 | NUR ---
MET WITH PATIENT AND A FAMILY MEMBER AT 2:30 PM TO REVIEW LOW-FIBER DIET. PROVIDED PRINTOUT FROM THE NUTRITION CARE MANUAL AND LOW -FIBER FOOD LIST. EXPLAINED FOODS RECOMMENDED, ESPECIALLY WHAT FRUITS AND VEGGIES ARE ALLOWED. PATIENT HAS GOOD UNDERSTANDING. HE DIDN'T EAT MUCH TODAY BECAUSE HIS GUT STARTED BOTHERING HIM. LOW-FIBER DIET JUST STARTED TODAY. HE WILL NEED TO FOLLOW IT FOR 4 WEEKS. THEY CAN CALL OR ASK A NURSE TO FIND ME IF THEY HAVE MORE QUESTIONS WHILE HERE.
[2017-09-30] MEDS ORDERED: GABAPENTIN300 MG PO (16:46)
--- NOTE | 2017-09-30 17:15 | NUR ---
PT HAD A VERY GOOD DAY. C/O HEADACHE-- EXCEDRIN ORDERED. NORCO TO BE GIVEN AT 1800. PAIN WELL CONTROLLED TODAY. DIET ADVANCED TO LOW FIBER DIET. D5LR DECREASED TO 50CC/HR PER MD ORDER (D/C WHEN BAG FINISHED). FLAGYL/ROCEPHIN. METOPROLOL INCREASED TO HOME NORMAL (50MG). NO NAUSEA. SHOWER TODAY. AMBULATED HALLS SBA. FENTANYL PATCH ON RIGHT SCAPULA AREA. NEW IV IN RIGHT HAND PLACED. LIKELY DISCHARGE TOMORROW.
[2017-09-30] MEDS ORDERED: NARCAN4 MG NAS (17:23)
--- NOTE | 2017-09-30 17:24 | NUR ---
Medications reconciled by pharmacy using [place] chart notes from 09/05/17 visit. A few discrepancies discovered, most notably the fentanyl patch that he has been using is 12mcg/hr, not the 25mcg/hr as stated. As far as I could tell, the 25mcg/hr patch was replaced/tapered to the 12mcg/hr patch.
--- NOTE | 2017-09-30 17:38 | NUR ---
PATIENT UP TO BATHROOM STAND BY ASSIST. PATIENT STATES THAT HE'S IN 7 OUT OF 10 PAIN. RN NOTIFIED ABOUT PAIN AND HIGH BLOOD PRESSURE.
[2017-09-30] MEDS ORDERED: NORVASC5 MG PO (18:32)
--- NOTE | 2017-09-30 19:45 | NUR ---
RECIEVED REPORT FROM DAY SHIFT NURSE. PT RESTING IN BED. AT BEDSIDE. PT JUST GOT BACK TO ROOM FROM AMBULATING HALLWAY. STATES HE HAD 1 EPISODE OF DIARRHEA TODAY. PT STATES HE IS STILL FEELING "CRAMPY" RATES HIS CRAMPING PAIN 7/10 IN LOWER ABD. HEAT PACK APPLIED. PT AWARE HIS PAIN MEDICATION DUE TO AT 2129, STATES HE COULD WAIT TIL THEN TO RECIEVE PAIN MEDICAITON. LUNG SOUNDS CLEAR. HR REGULAR. NO EDEMA BLE. BS HYPERACTIVE. PT STATES HE HAD MASHED POTATOES FOR DINNER AND A LITTLE OJ. IVF INFUSING IN R HAND W/O DIFFICULTY. AT BEDSIDE. BOTH PT AND DENY NEEDS A THIS TIME. CALL LIGHT IN REACH.
--- NOTE | 2017-09-30 21:43 | NUR ---
PT RATES HIS CRAMPING PAIN 5/10 WHICH IS BETTER THAN EARLIER. ADMINISTERED NORCO. PT DENIES NAUSEA. CALL MINOR IN REACH.
--- NOTE | 2017-09-30 22:08 | NUR ---
PT RESTING IN BED. APPEARS COMFORTABLE. NO C/O AT THIS TIME. AT BEDSIDE. OFFERED WARM PACK, PT DENIED. CALL LIGHT IN REACH.
--- NOTE | 2017-10-01 01:15 | NUR ---
PATIENT CALLED TO USE THE BATHROOM. STANDBY ASSIST, PATIENT IS BACK IN BED. PATIENT REQUESTED FOR SNACK. POCKET CUTTER CONTACTED. PATIENT ASKED FOR APPLE JUICE, GIVEN.
--- NOTE | 2017-10-01 01:30 | NUR ---
PT RESTING IN BED EATING A SANDWICH. STATES HE FEELS HUNGRY. RATES HIS ABDOMINAL CRAMPS 04/20. NORCO ADMINISTERED PER PT'S REQUEST. IVF INFUSING W/O DIFFICULTY. PT DENIES FURTHER NEEDS. CALL MINOR IN REACH.
--- NOTE | 2017-10-01 03:07 | NUR ---
SL PT IV. CALL LIGHT WITHIN REACH, OFFERS NO COMPLAINTS.
--- NOTE | 2017-10-01 03:41 | NUR ---
PT SLEEPING ON L SIDE. CALL MINOR IN REACH.
--- NOTE | 2017-10-01 05:53 | NUR ---
PT RESTING IN BED. C/O NAUSEA AND 4/10 PAIN IN HIS LOWER ABD. PHENERGAN ADMINISTERED. PT STATES HE HAS NOT SLEPT ALL NIGHT. PT STATES HE HAS A HARD TIME SLEEPING AT HOME SOMETIMES. LUNGS CLEAR, HR REG, BS ACTIVE. PT VOIDED AND HAD A LOOSE BM. DENIES FURTHER NEEDS. CALL LIGHT IN REACH.
[2017-10-01] MEDS ORDERED: ERYTHROMYCIN1 GM OS (08:22)
--- NOTE | 2017-10-01 09:00 | NUR ---
PATIENT REFUSED SHOWER DUE TO POSSIBLE DISCHARGE TODAY. ORAL CARE DONE WASHCLOTH GIVEN FOR HANDS AND FACE.
--- NOTE | 2017-10-01 09:44 | OR ---
[facility] [address], [place] [address] Signed DATE OF OPERATION: 09/27/2017 SURGEON: Lyndon Tello MD PREOPERATIVE DIAGNOSES: Severe left-sided colitis, probable ischemic colitis. POSTOPERATIVE DIAGNOSIS: Ischemic colitis, left colon. PROCEDURE: Colonoscopy beyond splenic flexures with biopsy. SURGEON: Lyndon Tello MD ANESTHESIA: Intravenous sedation, Propofol infusion, Marianna Lara CRNA. INDICATION: This 67-year-old white man is a and admitted to the hospital by Dr. Troncoso on 09/25/2017 with left-sided abdominal pain. A CT scan showed findings highly suggestive of ischemic colitis. He has a slightly aberrant vascular pattern including the SMA and celiac axis as a shared area. Patency of the inferior mesenteric artery is noted upon close review of the study with Dr. Damico. He has been admitted and given fluid resuscitation, antibiotics, bowel rest, and so forth. Today, he does have a bit more distention, but no evidence of peritonitis or anything to suggest perforation. Colonoscopy was already planned for today to affirm the clinical diagnosis of ischemic colitis and to assess there is no sign of ulcerative colitis or other type of colitis. He understands the risks of bleeding, infection, and perforation, and wished to proceed. FINDINGS: Clearly ischemic colitis is noted, extended from the splenic flexure to the proximal sigmoid colon. The rectum and transverse colon were completely normal. There was no sign of active bleeding. He definitely had most severe disease in the mid descending colon. DESCRIPTION OF PROCEDURE: The patient was brought to the endoscopy suite and placed in lateral decubitus position, left side down. He was given intravenous sedation with full cardiopulmonary monitoring by the department clinician. Digital rectal examination was normal. An Olympus video colonoscope was passed in the rectum and irrigation undertaken. There was some old blood that was matted to the mucosa with various manipulations. The scope was advanced into the colon and into the sigmoid, where the descending colon was quite easily observed and found to be completely consistent with ischemic colitis. With all of Electronically Signed By: LYNDON TELLO MD 10/01/17 0944 PATIENT NAME: ARLEN GILL III OPERATIVE REPORT DATE OF : 46 PHYSICIAN: LYNDON TELLO MD REPORT #: [id number] REPORT IS CONFIDENTIAL AND NOT TO BE RELEASED WITHOUT AUTHORIZATION [facility] [address], [place] [address] Signed the care, the scope was passed more proximally to assess the extent of the problem beyond the splenic flexure to the transverse colon, where the mucosa was entirely normal. The procedure was rather prolonged, complicated, and difficult on the basis of blood, tenacious mucoid material, and so forth. Once the transverse colon was obtained, biopsies were taken and the scope withdrawn. The splenic flexure extending through the descending colon to probably the mid sigmoid had rather severe ischemic changes including bermudez dark membranes, edema, and so on. Biopsies were taken throughout. Biopsies were then taken of the normal-appearing mucosa of the rectosigmoid and rectum. Scope was removed. The patient was taken to recovery room in good condition. CONCLUDING DIAGNOSIS: No question of ischemic colitis, dominantly in the mid descending colon including splenic flexure and proximal sigmoid. PLAN: Continued IV antibiotics, IV fluid support and time would be appropriate. I believe it is highly likely that this will resolve in time. Progression to perforation is unlikely though not impossible and progression to ischemic stricture is a consideration as well, but less likely I think. MD RAQUEL Juan/[id number] /[id number] cc: MD Carmelo Jara MD Electronically Signed By: LYNDON TELLO MD 10/01/17 0944 PATIENT NAME: ARLEN GILL III OPERATIVE REPORT DATE OF : 46 PHYSICIAN: LYNDON TELLO MD REPORT #: [id number] REPORT IS CONFIDENTIAL AND NOT TO BE RELEASED WITHOUT AUTHORIZATION
--- NOTE | 2017-10-01 09:48 | NUR ---
PATIENT RESTING IN BED WITH IN ROOM FRESH WATER GIVEN NO OTHER NEEDS AT THIS TIME.
== END 2017-10-01 11:00 | disposition home or self-care (01) | DRG 391 ==
LOC: ED 18:23 → CCU 21:49 → MS 21:49
PROVIDERS: Surgery; ADMIT Internal Medicine
PROC: 0DBN8ZX Excision of Sigmoid Colon, Via Natural or Artificial Opening Endoscopic, Diagnostic (ICD-10-PCS; 2017-09-27)
PROC: 0DBP8ZX Excision of Rectum, Via Natural or Artificial Opening Endoscopic, Diagnostic (ICD-10-PCS; principal; 2017-09-27 12:00)
DX: K52.9 Noninfective gastroenteritis and colitis, unspecified (principal); K55.039 Acute (reversible) ischemia of large intestine, extent unspecified; K56.7 Ileus, unspecified; I10 Essential (primary) hypertension; M54.9 Dorsalgia, unspecified; K21.9 Gastro-esophageal reflux disease without esophagitis; Z79.891 Long term (current) use of opiate analgesic
CPT/HCPCS: 00810; 36415; 51702; 74020; 74177; 80048; 80053; 80069; 81001; 83735; 85025; 85610; 85730; 86850; 86900; 86901; 87045; 87046; 87205; 88305; 94668; 94760; 94762; J0696; J1885; J2250; J2405; J2550; J2704; J3010; J3475; J3480; J7030; J7040; J7060; J7120; Q9967

== ENCOUNTER 2018-01-03 07:24 | Day surgery (SDC) | payer OTHER ==
[~2018-01-03] VITALS: Ht 188 cm; Wt 85.3 kg
[~2018-01-03 07:24] MED LIST changes: +ERYTHROMYCIN1 GM OS; +GABAPENTIN300 MG PO; +NARCAN4 MG NAS; +NORVASC5 MG PO
--- NOTE | 2018-01-03 09:04 | NUR ---
01/03/18 0904 Florecita Reagan 0891-PATIENT ARRIVED TO PACU ON 3L NC O2 SAT 99% PATIENT DROWSY HAS HICCUPS. DENIES PAIN OR NAUSEA. ABDOMEN SOFT.
--- NOTE | 2018-01-16 14:11 | OR ---
[facility] [address] [place], [place] [address] Signed DATE OF OPERATION: 01/03/2018 SURGEON: Lyndon Tello MD PREOPERATIVE DIAGNOSIS: History of ischemic colitis, left colon, September 2017. POSTOPERATIVE DIAGNOSES: 1. Complete resolution of colitis of colon. 2. Residual inflammatory polyps x3. PROCEDURE: Total colonoscopy to cecum with cold morcellation polypectomy x3. ANESTHESIA: Intravenous sedation with fentanyl 100 mcg, Versed 7 mg. INDICATION: This 67-year-old white man is a patient of Dr. Campos at [facility]. He was admitted in September [address] [facility] with rectal bleeding and findings of colitis. Colonoscopy confirmed ischemic colitis of the left colon. He resolved with supportive measures and is generally doing well now. He recently was bothered by gout, which has resolved as well. He is admitted at this time to undergo colonoscopy to assure resolution of his ischemic colitis and assess for ischemic stricture or other residual problems. He understands the risks of bleeding, infection, and perforation related to colonoscopy and wished to proceed. FINDINGS: Prep was excellent. Complete colonoscopy was undertaken. There were some inflammatory polyps of the left colon, but complete resolution of the colitis otherwise. DESCRIPTION OF PROCEDURE: The patient was brought to the endoscopy suite and placed in lateral decubitus position, given intravenous sedation to the point of slurred speech and nystagmus. Digital rectal examination was normal. An Olympus video colonoscope was passed in the rectum and manipulated throughout the colon. Notable was complete absence of colitis of the sigmoid and left colon. Scope was advanced beyond the splenic flexure and hepatic flexure with visualization of the right colon. There was no sign of abnormality there. The scope was withdrawn from that Electronically Signed By: LYNDON TELLO MD 01/16/18 1411 PATIENT NAME: ARLEN GILL III OPERATIVE REPORT DATE OF : 46 REPORT #: [id number] PHYSICIAN: LYNDON TELLO MD PCP: LUIS MIGUEL CAMPOS MD REPORT IS CONFIDENTIAL AND NOT TO BE RELEASED WITHOUT AUTHORIZATION [facility] [address] [place], [place] [address] Signed point and examination undertaken. In the mid descending colon were some probable inflammatory polyps, 3 were excised with cold morcellation technique. There was no sign of stricture or other problem. Further withdrawal of scope showed no other abnormality. Retroflexed view was normal. Scope was removed and the patient was taken to recovery room in good condition. CONCLUDING DIAGNOSIS: Clinical endoscopic resolution of ischemic colitis. Residual inflammatory polyps (excised). PLAN: Recommend a regular diet. If recurrent symptoms, to let me know. He will continue to be seen by Dr. Campos at [facility]. MD RAQUEL Juan/DIPTI /[id number] cc: MD Luis Miguel Jara MD Copies: MARILY TYLER MD, MICAIAH MATTHEW MD ~ Electronically Signed By: LYNDON TELLO MD 01/16/18 1411 PATIENT NAME: ARLEN GILL III OPERATIVE REPORT DATE OF : 46 REPORT #: [id number] PHYSICIAN: LYNDON TELLO MD PCP: LUIS MIGUEL CAMPOS MD REPORT IS CONFIDENTIAL AND NOT TO BE RELEASED WITHOUT AUTHORIZATION
== END 2018-01-03 09:42 | disposition home or self-care (01) ==
LOC: DS 07:24 → OPS 07:24 → DS 08:30 → OPS 09:42
PROVIDERS: Surgery
PROC: 0DBE8ZX Excision of Large Intestine, Via Natural or Artificial Opening Endoscopic, Diagnostic (ICD-10-PCS; 2018-01-03)
PROC: 0DBN8ZX Excision of Sigmoid Colon, Via Natural or Artificial Opening Endoscopic, Diagnostic (ICD-10-PCS; 2018-01-03)
PROC: 0DBP8ZX Excision of Rectum, Via Natural or Artificial Opening Endoscopic, Diagnostic (ICD-10-PCS; 2018-01-03)
PROC: 0DBF8ZX Excision of Right Large Intestine, Via Natural or Artificial Opening Endoscopic, Diagnostic (ICD-10-PCS; 2018-01-03)
PROC: 0DBG8ZX Excision of Left Large Intestine, Via Natural or Artificial Opening Endoscopic, Diagnostic (ICD-10-PCS; principal; 2018-01-03 08:30)
DX: D12.2 Benign neoplasm of ascending colon (principal); K63.89 Other specified diseases of intestine; K62.89 Other specified diseases of anus and rectum; I10 Essential (primary) hypertension; J45.909 Unspecified asthma, uncomplicated; F32.9 Major depressive disorder, single episode, unspecified; M79.89 Other specified soft tissue disorders; M10.9 Gout, unspecified; K21.9 Gastro-esophageal reflux disease without esophagitis; G89.29 Other chronic pain; M54.9 Dorsalgia, unspecified; Z88.8 Allergy status to other drugs, medicaments and biological substances; Z88.5 Allergy status to narcotic agent; Z91.09 Other allergy status, other than to drugs and biological substances; Z90.49 Acquired absence of other specified parts of digestive tract; Z98.890 Other specified postprocedural states; Z79.899 Other long term (current) drug therapy
CPT/HCPCS: 88305; 99153; G0500; J2250; J3010; J7120

== ENCOUNTER 2020-11-14 18:15 | Inpatient (IN) | payer MEDICARE, MEDICAID ==
[~2020-11-14] VITALS: Ht 188 cm; Wt 89.2 kg
[~2020-11-14 18:15] MED LIST changes: -HYDROCODON-ACE1 EAC8 PO; +NORCO 5-325 TA1 EACH PO
[2020-11-14] MEDS ORDERED: LISINOPRIL20 MG PO (18:38)
[2020-11-14] MEDS ORDERED: OMEPRAZOLE20 MG PO (18:39)
--- NOTE | 2020-11-15 06:57 | EKG ---
[facility] [address] [facility] [place] [address] Signed Normal sinus rhythm Moderate voltage criteria for LVH, may be normal variant Borderline ECG When compared with ECG of 13-FEB-2017 11:02, T wave inversion now evident in Inferior leads T wave amplitude has decreased in Lateral leads Confirmed by JONATHON BRADEN MD ([id number]) on 11/15/2020 6:57:35 AM Electronically Signed By: JONATHON BRADEN MD 11/15/20 0657 PATIENT NAME: ARLEN GILL III Electrocardiogram DATE OF : 46 PHYSICIAN: JONATHON BRADEN MD REPORT #: [id number] REPORT IS CONFIDENTIAL AND NOT TO BE RELEASED WITHOUT AUTHORIZATION
[2020-11-16] MEDS ORDERED: CYCLOBENZAPRINE10 MG PO (08:35)
[2020-11-16] MEDS ORDERED: DOK100 MG PO (08:36)
[2020-11-16] MEDS ORDERED: MIRALAX17 GM PO (08:37)
[2020-11-16] MEDS ORDERED: VIAGRA100 MG PO (08:38)
[2020-11-16] MEDS ORDERED: MARIJUANA (08:40)
--- NOTE | 2020-11-16 15:19 | CONS ---
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 HISTORY OF PRESENT ILLNESS: This 70-year-old white man presented to the emergency room late yesterday and was evaluated by Dr. Solis. He has a long-standing history of hypertension, chronic pain, and prior episode of ischemic colitis of the sigmoid and splenic flexure area. He began having abdominal pain and rectal bleeding the day prior to admission. He has had constant left-sided abdominal pain rated 5/10. The patient has had worsening diarrhea. Initially it was loose and watery, now grossly bloody. He is admitted for further evaluation and care with the presumptive diagnosis of ischemic colitis. A CT scan was performed confirming that impression as well. He has no sign of free air or perforation. The patient does not smoke. He has never smoked. He denies alcohol use and is not using NSAID medication typically. CURRENT MEDICATIONS: Include amlodipine (Norvasc). Additionally, he takes lisinopril 20 mg daily, fentanyl patch for chronic back pain, albuterol inhaler q.i.d. as needed for shortness of breath, omeprazole 20 mg daily, metoprolol 1 tablet p.o. b.i.d. dose uncertain, and [place]. REVIEW OF SYSTEMS: He denies any shortness of breath or chest pain. He does have left-sided abdominal pain. He has had no hematemesis or nausea or vomiting. PHYSICAL EXAMINATION: GENERAL: Relatively tall and somewhat thin white male with a large abdomen. He is laying on his right side. HEENT: Mucous membranes are reasonably moist. Trachea is midline. CHEST : Shows normal respiratory excursion. Pulses regular. ABDOMEN: Palpated. He does have some tenderness in the left mid abdomen. There is no sign of ascites. EXTREMITIES: Show no clubbing, cyanosis, or edema. LAB STUDIES: On admission showed a white count of 13.2, hematocrit 44.1, and platelets 143,000. His white count this afternoon is 9.2 with hematocrit of 40.2 and platelets of 145,000. Sedimentation rate is 20. Urinalysis is not complete. COVID test (rapid type) is negative. Coag studies show an INR of 1.0. Chem profile shows normal electrolytes. Electronically Signed By: LYNDON TELLO MD 11/16/20 1519 PATIENT NAME: ARLEN GILL III CONSULTATION DATE OF : 46 REPORT #: [id number] PHYSICIAN: LYNDON TELLO MD PCP: LUIS MIGUEL CAMPOS MD REPORT IS CONFIDENTIAL AND NOT TO BE RELEASED WITHOUT AUTHORIZATION [facility] [address], [place] [address] Signed Creatinine initially 1.31, now down to 1.12. Lactic acid was 1.0 last night, though not repeated today. His troponin was less than 0.01. I reviewed his CT scan findings as well as report. Findings are consistent with colitis on the left side, most likely ischemic colitis given his prior history. ASSESSMENT: The patient likely has recurrent ischemic colitis. He does have collateral blood flow noted on the imaging studies, which is somewhat typical of large vessel occlusion (chronic), but was present previously when seen before in 2017. Review of my prior notes confirm colonoscopy in December of 2017 and prior to that September 27, 2017. His followup colonoscopy after his initial bout of ischemic colitis was entirely normal other than small polyps which were not adenomatous. I agree with current management including IV antibiotics in this situation given his tenderness. He might be allowed liquids for comfort, which he might have enjoyed generally and I doubt it would cause much issue related to his ischemic colitis. Colonoscopy should be undertaken to reaffirm the findings and assess that it is not some other type of colitis, which would be more appropriately treated with steroids, etc. Most likely this is ischemic colitis. One considers the possibility that ischemic colitis recurrent might be considered for resection. That would not be necessary currently unless there is progression to necrosis or perforation. However, ischemic colitis typically follows a pattern of 3s; 1/3rd of patients recover fully with no recurrence, 1/3rd progress to perforation and 1/3rd heal but develop stricture. He appears simply to have recurred and does not have evidence of any other problems at the moment. Additionally, given his chronic use of opiates including fentanyl patch, pain control issues might be improved by intravenous Tylenol or even oral Tylenol if tolerated. We will review with Dr. Fleming. We will continue to follow patient. We will anticipate colonoscopy in the future and if symptoms should worsen, more aggressive intervention may be required. MD RAQUEL Juan/NUNUL /[id number] Electronically Signed By: LYNDON TELLO MD 11/16/20 1519 PATIENT NAME: ENGLISH CAPUTOARLEN PAREDES CONSULTATION DATE OF : 46 REPORT #: [id number] PHYSICIAN: LYNDON TELLO MD PCP: LUIS MIGUEL CAMPOS MD REPORT IS CONFIDENTIAL AND NOT TO BE RELEASED WITHOUT AUTHORIZATION [facility] [address] [place], [place] [address] Signed cc: Jonathon Fleming MD Copies: JONATHON FLEMING MD ~ Electronically Signed By: LYNDON TELLO MD 11/16/20 1519 PATIENT NAME: ARLEN GILL III CONSULTATION DATE OF : 46 REPORT #: [id number] PHYSICIAN: LYNDON TELLO MD PCP: LUIS MIGUEL CAMPOS MD REPORT IS CONFIDENTIAL AND NOT TO BE RELEASED WITHOUT AUTHORIZATION
--- NOTE | 2020-11-18 13:30 | OR ---
[facility] [address] [place], [place] [address] Signed DATE OF OPERATION: 11/17/2020 SURGEON: Lyndon Tello MD PREOPERATIVE DIAGNOSIS: Probable recurrent splenic flexure, ischemic colitis. POSTOPERATIVE DIAGNOSES: 1. Splenic flexure and proximal descending colon ischemic colitis. 2. Sessile polyp of left transverse colon. PROCEDURE: Total colonoscopy to cecum with hot snare polypectomy x1 and cold morcellation biopsies. ANESTHESIA: Intravenous sedation. Fentanyl 100 mcg, Versed 7 mg. INDICATION: A 70-year-old white man is well known to me from the past. In 2017, he was diagnosed with ischemic colitis at the splenic flexure and left colon. He is a patient of Dr. Campos. He was admitted by Dr. Fleming on 11/14/2020 with recurrent bleeding and left-sided abdominal pain., CT scan finding suggestive of recurrence ischemic colitis. He is improved with antibiotics, IV fluids and bowel rest and is now to undergo colonoscopy to confirm the diagnosis. The risks of bleeding, infection, and perforation were reviewed with him. He understands and wished to proceed. FINDINGS: The prep was quite good. Complete colonoscopy was undertaken to the cecum. Ischemic colitis was noted of the splenic flexure and proximal left colon. There was a sessile polyp of the left transverse colon which was excised as well. There was no evidence of inflammatory bowel disease proper. The level of ischemic colitis was less than often showing no sign of full-thickness necrosis or anything of that sort. DESCRIPTION OF PROCEDURE: The patient was brought to the endoscopy suite and placed in lateral decubitus position, given intravenous sedation to the point of slurred speech and nystagmus with full cardiopulmonary monitoring. Digital rectal examination was found to be normal. An Olympus video colonoscope was passed in the rectum and manipulated throughout the colon noting ischemic colitis Electronically Signed By: LYNDON TELLO MD 11/18/20 1330 PATIENT NAME: ARLEN GILL III OPERATIVE REPORT DATE OF : 46 REPORT #: [id number] PHYSICIAN: LYNDON TELLO MD PCP: LUIS MIGUEL CAMPOS MD REPORT IS CONFIDENTIAL AND NOT TO BE RELEASED WITHOUT AUTHORIZATION [facility] [address] [place], [place] [address] Signed changes at the splenic flexure. The scope was passed beyond the splenic flexure, immediately noted was an approximately 2 cm sessile polyp of the left transverse colon. This was adenomatous in appearance. This was excised with hot snare polypectomy technique without problem. A basket was applied to the polyp and the scope was withdrawn and the polyp offloaded. The scope was once again reintroduced and passed to that site and beyond ultimately to the cecum itself. The scope was withdrawn to the cecum and examination showed no sign of abnormality, perfectly normal colon the right and transverse colon but again ischemic colitis changes in the splenic flexure and left colon. At 30 cm was an area that may or may not have been hypertrophied or inflammatory in someway. This was biopsied as a separate lesion. Further withdrawal of scope showed the sigmoid and rectum to be normal. Scope was removed. The patient was taken to the recovery room in good condition. CONCLUSION DIAGNOSIS: Ischemic colitis, no doubt the source of his current symptoms. Incidental finding of relatively large polyp left colon and uncertain lesion at 30 cm, probably benign. PLAN: He will return to the [facility] for advancement of his diet and further management. MD RAQUEL Juan/DIPTI /[id number] cc: MD Syl Samuels MD Copies: LUIS MIGUEL CAMPOS MD, CYNTHIA MD ~ Electronically Signed By: LYNDON TELLO MD 11/18/20 1330 PATIENT NAME: DJIBOUTIAN ARLEN CAPUTO OPERATIVE REPORT DATE OF : 46 REPORT #: [id number] PHYSICIAN: LYNDON TELLO MD PCP: LUIS MIGUEL CAMPOS MD REPORT IS CONFIDENTIAL AND NOT TO BE RELEASED WITHOUT AUTHORIZATION
== END 2020-11-18 12:15 | disposition home or self-care (01) | DRG 395 ==
LOC: ED 18:15 → MS 23:30
PROVIDERS: Surgery; ADMIT Internal Medicine; ATTEND Internal Medicine
PROC: 0DBL8ZX Excision of Transverse Colon, Via Natural or Artificial Opening Endoscopic, Diagnostic (ICD-10-PCS; 2020-11-17)
PROC: 0DBG8ZX Excision of Left Large Intestine, Via Natural or Artificial Opening Endoscopic, Diagnostic (ICD-10-PCS; principal; 2020-11-17 16:00)
DX: K55.039 Acute (reversible) ischemia of large intestine, extent unspecified (principal); Z20.822 Contact with and (suspected) exposure to COVID-19; K63.5 Polyp of colon; I95.1 Orthostatic hypotension; I10 Essential (primary) hypertension; K21.9 Gastro-esophageal reflux disease without esophagitis; G89.29 Other chronic pain; M54.9 Dorsalgia, unspecified; Z88.8 Allergy status to other drugs, medicaments and biological substances; Z88.5 Allergy status to narcotic agent; Z79.899 Other long term (current) drug therapy; Z79.891 Long term (current) use of opiate analgesic
CPT/HCPCS: 36415; 74177; 80048; 80053; 83605; 83735; 84484; 85025; 85610; 85651; 86850; 86900; 86901; 93005; 93010; 96374; 96375; 99153; 99285-25; C9113; C9803; G0500; J0131; J0696; J1170; J2250; J2405; J3010; J7121; Q9967; U0003

== ENCOUNTER 2022-02-05 13:46 | Emergency (ER) | payer MEDICARE, MEDICAID ==
[~2022-02-05] VITALS: Ht 188 cm; Wt 88.9 kg
[~2022-02-05 13:46] MED LIST changes: +CYCLOBENZAPRINE10 MG PO; +DOK100 MG PO; +LISINOPRIL20 MG PO; +MARIJUANA; +MIRALAX17 GM PO; +OMEPRAZOLE20 MG PO; +VIAGRA100 MG PO
[2022-02-05] MEDS ORDERED: LEVOFLOXACIN500 MG PO (19:28)
== END 2022-02-05 19:41 | disposition home or self-care (01) ==
LOC: ED 13:46
DX: N39.0 Urinary tract infection, site not specified (principal); I10 Essential (primary) hypertension; Z91.048 Other nonmedicinal substance allergy status; Z88.5 Allergy status to narcotic agent; Z88.8 Allergy status to other drugs, medicaments and biological substances; Z79.899 Other long term (current) drug therapy
CPT/HCPCS: 36415; 51798; 71045; 80053; 81001; 83605; 85025; 99283-25; J0696; U0003

== ENCOUNTER 2023-01-02 10:18 | Emergency (ER) | payer MEDICARE, MEDICAID ==
[~2023-01-02] VITALS: Ht 188 cm; Wt 88.9 kg
[~2023-01-02 10:18] MED LIST changes: +LEVOFLOXACIN500 MG PO
[2023-01-02] MEDS ORDERED: DOXYCYCLINE HY100 MG PO (12:37)
[2023-01-02] MEDS ORDERED: AMOX TR-K CLV1 EAC1 PO (12:37)
--- NOTE | 2023-01-03 07:17 | EKG ---
[facility] [address] [facility] [place] [address] Signed Sinus tachycardia with occasional premature ventricular complexes Inferior infarct , age undetermined Abnormal ECG When compared with ECG of 14-NOV-2020 18:41, premature ventricular complexes are now present Vent. rate has increased BY 43 BPM Confirmed by JONATHON BRADEN MD ([id number]) on 01/03/2023 7:16:51 AM Electronically Signed By: JONATHON BRADEN MD 01/03/23 0717 PATIENT NAME: ARLEN GILL III Electrocardiogram DATE OF : 46 PHYSICIAN: JONATHON BRADEN MD REPORT #: [id number] REPORT IS CONFIDENTIAL AND NOT TO BE RELEASED WITHOUT AUTHORIZATION
== END 2023-01-02 14:20 | disposition home or self-care (01) ==
LOC: ED 10:18
DX: U07.1 COVID-19 (principal); J12.82 Pneumonia due to coronavirus disease 2019; I10 Essential (primary) hypertension; Z91.048 Other nonmedicinal substance allergy status; Z88.5 Allergy status to narcotic agent; Z88.8 Allergy status to other drugs, medicaments and biological substances; Z79.899 Other long term (current) drug therapy
CPT/HCPCS: 36415; 71045; 80053; 83605; 85025; 87502; 93005; 93010; 94640; 94664; 96365; 96375; 99284-25; A9270; C9803; J0696; J1885; J7030; U0003